=== PATIENT | female | born 1995 | race Hispanic/Latino ===

== ENCOUNTER 2018-08-17 15:30 | Emergency (ER) | payer MEDICAID, OTHER ==
[2018-08-17] MEDS ORDERED: ACETAMINOPHEN EXTRA STRENGTH 500 MG TABLET ONE (15:54)
[2018-08-17 16:03] LABS: APPEARANCE,URINE Clear (CLEAR); BILIRUBIN,URINE Negative (NEGATIVE); COLOR,URINE Yellow (YELLOW); GLUCOSE, URINE (UA) Negative (NEGATIVE); KETONES,URINE 40 mg/dL (NEGATIVE); LEUKOCYTE ESTERASE ,URINE Trace (NEGATIVE); NITRATE,URINE Negative (NEGATIVE); OCCULT BLOOD,URINE Negative (NEGATIVE); PH,URINE 5.5 (5.0-8.0); PROTEIN,URINE Negative (NEGATIVE); UROBILINOGEN,URINE 0.2 mg/dL (0.2-1.0)
[2018-08-17 16:08] LABS: HCG,QUAL RESULT NEGATIVE (NEGATIVE)
[2018-08-17 16:08] LABS: RAPID GROUP A STREP NEGATIVE (NEGATIVE)
[2018-08-17 17:29] LABS: BACTERIA,URINE Few /HPF (None Seen); MUCUS,URINE Few LPF (None Seen); RBC,URINE 0-1 /HPF (0-1); SQUAMOUS EPITHELIAL CELL,UR Moderate /HPF (0-2)
== END 2018-08-17 16:36 | disposition home or self-care (01) ==
LOC: EDH 15:30
DX: J03.90 Acute tonsillitis, unspecified (principal)
CPT/HCPCS: 81001; 81025; 87804; 87880

== ENCOUNTER 2019-01-18 12:12 | Emergency (ER) | payer OTHER | END 2019-01-18 14:14 | disposition home or self-care (01) | LOC: EDH 12:12 | DX: B37.3 Candidiasis of vulva and vagina (principal) ==

== ENCOUNTER 2019-06-07 18:27 | Emergency (ER) | payer OTHER ==
[2019-06-07 19:07] LABS: RAPID GROUP A STREP NEGATIVE (NEGATIVE)
[2019-06-07 19:23] LABS: APPEARANCE,URINE Cloudy (CLEAR); BILIRUBIN,URINE Negative (NEGATIVE); COLOR,URINE Yellow (YELLOW); GLUCOSE, URINE (UA) Negative (NEGATIVE); KETONES,URINE Negative (NEGATIVE); LEUKOCYTE ESTERASE ,URINE Moderate (NEGATIVE); NITRATE,URINE Negative (NEGATIVE); OCCULT BLOOD,URINE Negative (NEGATIVE); PH,URINE 6.5 (5.0-8.0); PROTEIN,URINE Negative (NEGATIVE)
[2019-06-07 19:25] LABS: HCG,QUAL RESULT NEGATIVE (NEGATIVE)
[2019-06-07 19:36] LABS: BACTERIA,URINE Moderate /HPF (None Seen); MUCUS,URINE Few LPF (None Seen); SQUAMOUS EPITHELIAL CELL,UR Many /HPF (0-2)
[2019-06-07] MEDS ORDERED: MAG HYDROX/AL HYDROX/SIMETH ES 30 ML SUSP UDCUP ONE (19:52)
[2019-06-07] MEDS ORDERED: LIDOCAINE HCL 2% VISCOUS 15 ML UDCUP ONE (19:52)
[2019-06-07] MEDS ORDERED: LIDOCAINE HCL-MPF 1% 2ML VIAL ONE (19:53)
[2019-06-07] MEDS ORDERED: CEFTRIAXONE SODIUM 1 GM ONE (19:53)
[2019-06-07] MEDS ORDERED: DEXAMETHASONE SOD PHOSPHATE 10MG/ML 1ML VIAL ONE (19:53)
== END 2019-06-07 20:38 | disposition home or self-care (01) ==
LOC: EDH 18:27
DX: J03.90 Acute tonsillitis, unspecified (principal); Z98.890 Other specified postprocedural states
CPT/HCPCS: 81001; 81025; 87804 ×2; 87880; 96372 ×2; 99284; J0696; J1100; J3490

== ENCOUNTER 2020-01-18 13:39 | Emergency (ER) | payer OTHER ==
[2020-01-18 15:00] LABS: APPEARANCE,URINE Turbid (CLEAR); BILIRUBIN,URINE Negative (NEGATIVE); COLOR,URINE Yellow (YELLOW); GLUCOSE, URINE (UA) Negative (NEGATIVE); KETONES,URINE Negative (NEGATIVE); LEUKOCYTE ESTERASE ,URINE Large (NEGATIVE); NITRATE,URINE Negative (NEGATIVE); OCCULT BLOOD,URINE Negative (NEGATIVE); PROTEIN,URINE Negative (NEGATIVE)
[2020-01-18 15:07] LABS: HCG,QUAL RESULT NEGATIVE (NEGATIVE)
[2020-01-18] MEDS ORDERED: LIDOCAINE HCL-MPF 1% 2ML VIAL ONE (15:12)
[2020-01-18] MEDS ORDERED: PHENAZOPYRIDINE HCL 200 MG TABLET ONE (15:13)
[2020-01-18] MEDS ORDERED: CEFTRIAXONE SODIUM 1 GM ONE (15:13)
[2020-01-18 15:25] LABS: AMORPHOUS SEDIMENT,UR Few /LPF (None Seen); BACTERIA,URINE Many /HPF (None Seen); RBC,URINE None Seen /HPF (0-1); SQUAMOUS EPITHELIAL CELL,UR 0-2 /HPF (0-2); WBC,URINE 26-50 /HPF (0-1)
== END 2020-01-18 15:34 | disposition home or self-care (01) ==
LOC: EDH 13:39
DX: N39.0 Urinary tract infection, site not specified (principal); B37.9 Candidiasis, unspecified; Z98.890 Other specified postprocedural states
CPT/HCPCS: 81001; 81025; 87077; 87088; 87186; 96372; 99283; J0696; J3490

== ENCOUNTER 2020-03-08 09:51 | Emergency (ER) | payer OTHER ==
[2020-03-08 10:48] LABS: APPEARANCE,URINE Clear (CLEAR); BILIRUBIN,URINE Negative (NEGATIVE); COLOR,URINE Yellow (YELLOW); GLUCOSE, URINE (UA) Negative (NEGATIVE); KETONES,URINE Negative (NEGATIVE); LEUKOCYTE ESTERASE ,URINE Small (NEGATIVE); NITRATE,URINE Negative (NEGATIVE); OCCULT BLOOD,URINE Negative (NEGATIVE); PROTEIN,URINE Negative (NEGATIVE); UROBILINOGEN,URINE 0.2 mg/dL (0.2-1.0)
[2020-03-08 10:51] LABS: HCG,QUAL RESULT NEGATIVE (NEGATIVE)
[2020-03-08] MEDS ORDERED: AZITHROMYCIN 250 MG TABLET PO ONE (10:56)
[2020-03-08] MEDS ORDERED: LIDOCAINE HCL-MPF 1% 2ML VIAL ONE (10:56)
[2020-03-08] MEDS ORDERED: CEFTRIAXONE SODIUM 500 MG VIAL ONE (10:56)
[2020-03-08 11:49] LABS: BACTERIA,URINE Few /HPF (None Seen); RBC,URINE None Seen /HPF (0-1)
== END 2020-03-08 11:49 | disposition home or self-care (01) ==
LOC: EDH 09:51
DX: R30.0 Dysuria (principal); Z98.890 Other specified postprocedural states
CPT/HCPCS: 81001; 81025; 87486; 87797; 96372; 99283; J0696; J3490

== ENCOUNTER 2020-10-15 10:33 | Emergency (ER) | payer MEDICAID ==
[~2020-10-15] VITALS: Ht 157.5 cm; Wt 81.6 kg
[2020-10-15 11:36] VITALS: BP 125/74
[2020-10-15 12:50] LABS: APPEARANCE,URINE Clear (CLEAR); BILIRUBIN,URINE Negative (NEGATIVE); COLOR,URINE Yellow (YELLOW); GLUCOSE, URINE (UA) Negative (NEGATIVE); KETONES,URINE Negative (NEGATIVE); LEUKOCYTE ESTERASE ,URINE Small (NEGATIVE); NITRATE,URINE Negative (NEGATIVE); OCCULT BLOOD,URINE Negative (NEGATIVE); PROTEIN,URINE Negative (NEGATIVE); UROBILINOGEN,URINE 0.2 mg/dL (0.2-1.0)
[2020-10-15 13:05] LABS: BACTERIA,URINE Rare /HPF (None Seen); RBC,URINE 0-1 /HPF (0-1); SQUAMOUS EPITHELIAL CELL,UR Rare /HPF (0-2); WBC,URINE 0-1 /HPF (0-1)
[2020-10-15] MEDS ORDERED: CEFTRIAXONE SODIUM 500 MG (DOSE 250-750MG) VIAL IM SCH (13:42)
[2020-10-15] MEDS ORDERED: METRONIDAZOLE 500 MG TABLET PO SCH (13:45)
[2020-10-15] MEDS ORDERED: FLUCONAZOLE 100 MG TAB PO SCH (13:45)
[2020-10-15] MEDS ORDERED: FLUC150T PO (13:51)
[2020-10-15] MEDS ORDERED: METR500T PO (13:51)
[2020-10-15] MEDS ORDERED: DOXY100C2 PO (13:51)
[2020-10-15] MEDS ORDERED: LIDOCAINE HCL-MPF 1% 2ML VIAL ONE (13:57)
[2020-10-15] MEDS ORDERED: METRONIDAZOLE 250 MG TABLET ONE (14:14)
[2020-10-16 18:09] LABS: CHLAMYDIA DNA N.A.AMPLIFY Negative (Negative)
== END 2020-10-15 15:07 | disposition home or self-care (01) ==
LOC: EDH 10:33
DX: N76.0 Acute vaginitis (principal); B37.3 Candidiasis of vulva and vagina; Z79.899 Other long term (current) drug therapy
CPT/HCPCS: 81001; 87210; 87486; 87797; 96372; 99283; J0696; J3490

== ENCOUNTER 2021-12-25 10:05 | Emergency (ER) | payer MEDICAID ==
[~2021-12-25] VITALS: Ht 157.5 cm; Wt 88.0 kg
[~2021-12-25 10:05] MED LIST: DOXY100C5 PO; FLUC150T PO; METR500T PO
[2021-12-25 10:38] LABS: BASOPHILS % (AUTO) 0.3 % (0.0-5.0); EOSINOPHILS % (AUTO) 2.8 % (0.0-8.0); HEMATOCRIT 37.1 % (36-48); LYMPHOCYTES % (AUTO) 28.9 % (21.0-51.0); MEAN CORPUSCULAR HEMOGLOBIN 27.6 pg (27.0-33.0); MEAN CORPUSCULAR HGB CONC 32.3 g/dL (32.0-36.0); MEAN CORPUSCULAR VOLUME 85.5 fL (79-99); MONOCYTES % (AUTO) 7.9 % (3.0-13.0); NEUTROPHILS % (AUTO) 59.8 % (40.0-77.0); PLATELET COUNT (AUTO) 284 K/uL (130-400); RED BLOOD CELL COUNT(AUTO) 4.34 MIL/uL (4.00-5.50); RED CELL DISTRIBUTION WIDTH 14.6 % (11.0-15.5); WHITE BLOOD COUNT (AUTO) 8.9 K/uL (4.8-10.8)
[2021-12-25 10:39] LABS: APPEARANCE,URINE CLEAR (CLEAR); BILIRUBIN,URINE NEGATIVE (NEGATIVE); COLOR,URINE YELLOW (YELLOW); GLUCOSE, URINE (UA) NEGATIVE (NEGATIVE); KETONES,URINE NEGATIVE (NEGATIVE); LEUKOCYTE ESTERASE ,URINE NEGATIVE (NEGATIVE); NITRATE,URINE NEGATIVE (NEGATIVE); OCCULT BLOOD,URINE NEGATIVE (NEGATIVE); PROTEIN,URINE NEGATIVE (NEGATIVE); UROBILINOGEN,URINE 0.2 mg/dL (0.2-1.0)
[2021-12-25 10:53] LABS: CREATININE 0.7 mg/dL (0.5-1.5); POTASSIUM 3.4 mmol/L (3.5-5.1)
[2021-12-25 10:58] LABS: ALBUMIN 3.7 g/dL (3.5-5.0); TOTAL PROTEIN, SERUM 8.1 g/dL (6.0-8.3)
[2021-12-25 12:40] VITALS: BP 106/61
[2021-12-25] MEDS ORDERED: METR45G TP (13:46)
== END 2021-12-25 13:51 | disposition home or self-care (01) ==
LOC: EDH 10:05
DX: N76.0 Acute vaginitis (principal)
CPT/HCPCS: 36415; 80053; 81003; 85025; 87210; 87486; 87797